=== PATIENT | male | born 1945 | race Caucasian/White ===

== ENCOUNTER 2017-08-24 14:42 | Emergency (ER) | payer MEDICARE, BC ==
[~2017-08-24] VITALS: Ht 182.9 cm; Wt 90.7 kg
--- NOTE | 2017-08-24 14:44 | NUR ---
BBRA 86 FROM HOME FOR NEAR SYNCOPAL EPISODE WITNESSED BY HOME HEALTH RN. RT KNEE DWIGHT 2 DAYS AGO. PALCED ON MONITOR. AWAITING MD ORDER. 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
[2017-08-24] MEDS ORDERED: IV NS 0.9% 1,000 ML BAG IV ONE (15:00)
[2017-08-24 15:16] LABS: BASOPHILS # (AUTO) 0.1 /CMM (0.0-0.2); EOSINOPHILS # (AUTO) 0.2 /CMM (0.0-0.7); EOSINOPHILS % (AUTO) 2.5 % (0.0-6.0); HEMATOCRIT 39 % (39-51); HEMOGLOBIN 12.6 g/dL (13.5-17.5); LYMPHOCYTES # (AUTO) 0.8 /CMM (0.8-4.8); LYMPHOCYTES % (AUTO) 9.7 % (20.0-44.0); MEAN CORPUSCULAR HEMOGLOBIN 29 PG (26.0-33.0); MEAN CORPUSCULAR HGB CONC 32 g/dl (31.0-36.0); MEAN CORPUSCULAR VOLUME 89 fL (80-96); MONOCYTES # (AUTO) 0.6 /CMM (0.1-1.30); MONOCYTES % (AUTO) 6.7 % (2.0-12.0); NEUTROPHILS # (AUTO) 6.8 /CMM (1.8-8.9); NEUTROPHILS % (AUTO) 80.1 % (43.0-81.0); PLATELET COUNT (AUTO) 219 /CMM (150-450); RDW COEFFICIENT OF VARIATION 12.4 (11.5-15.0); RED BLOOD CELL COUNT(AUTO) 4.39 MIL/uL (4.5-6.0); WHITE BLOOD COUNT (AUTO) 8.5 K/uL (4.3-11.0)
--- NOTE | 2017-08-24 15:16 | NUR ---
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
[2017-08-24 15:25] LABS: CALCIUM, SERUM 8.6 mg/dL (8.5-10.1); CARBON DIOXIDE 26 mmol/L (21-32); CHLORIDE 102 mmol/L (98-107); CREATININE 1.3 mg/dL (0.6-1.3); GLUCOSE 146 mg/dL (74-106); POTASSIUM 4.3 mmol/L (3.5-5.1); SODIUM SERUM 134 mmol/L (136-145); UREA NITROGEN, BLOOD 23 mg/dL (7-18)
[2017-08-24 15:30] LABS: INR 0.99 (0.87-1.13); PROTHROMBIN TIME 10.3 SECS (9.5-12.7)
[2017-08-24 15:36] LABS: TROPONIN I < 0.017 ng/mL (0.00-0.056)
--- NOTE | 2017-08-24 16:15 | NUR ---
GAVE REPORT TO TO [facility] TELEMETRY ROOM [address] SOTO TRANSFER VIA [facility]
[2017-08-24 16:35] LABS: APPEARANCE,URINE Clear (CLEAR); BILIRUBIN,URINE SMALL (NEGATIVE); BLOOD, URINE Negative Ery/uL (NEGATIVE); COLOR,URINE Yellow (YELLOW); KETONES,URINE Trace (NEGATIVE); LEUKOCYTE ESTERASE ,URINE Negative (NEGATIVE); NITRITE, URINE Negative (NEGATIVE); PROTEIN,URINE Trace mg/dl (NEGATIVE); UGLUCOSE Negative (NEGATIVE); UROBILINOGEN,URINE >=8.0 EU/dL (0.2)
[2017-08-24 16:46] LABS: BACTERIA,URINE Rare /HPF (None Seen); RBC,URINE 0-2 /HPF (0-2); SQUAMOUS EPITHELIAL CELL,UR Few /HPF (None Seen); WBC,URINE 0-2 /HPF (0-3)
[2017-08-24] MEDS ORDERED: VANCOMYCIN 1 GM in IV D5W 250 ML IV ONE (17:30)
[2017-08-24] MEDS ORDERED: CEFEPIME 1 GM in IV D5W 50 ML IV ONE (17:30)
[2017-08-24 17:49] LABS: BILIRUBIN,DIRECT 0.4 mg/dL (0.0-0.2)
--- NOTE | 2017-08-24 19:00 | NUR ---
REPORT RECEIVED FROM BERTRAND LIN. PT BEING TRANS TO [facility], AWAITING BED.
--- NOTE | 2017-08-24 19:05 | NUR ---
PT RESTING QUIETLY, FAMILY AT BEDSIDE. VSS/RESP EVEN AND UNLABORED/NAD NOTED. CONTINUING TO PROVIDE COMFORT MEASURES.
--- NOTE | 2017-08-24 19:21 | NUR ---
Pt accepted to [facility] Room number 7912 Number for report is [phone]
--- NOTE | 2017-08-24 19:26 | NUR ---
called for amb pickup. eta given: [id number]
--- NOTE | 2017-08-24 19:32 | NUR ---
GAVE REPORT TO SHARLENE THURSTON FOR ELISA
--- NOTE | 2017-08-24 19:46 | NUR ---
GAVE REPORT TO SHAAN THURSTON AT [facility] ACCEPTING MD DR MORTON NEAR SYNCOPE
[2017-08-24 21:08] VITALS: BP 140/74
--- NOTE | 2017-08-24 22:08 | NUR ---
REPORT GIVVEN TO [facility] FOR PT TRANSFER TO [facility].
== END 2017-08-24 22:11 | disposition short-term general hospital (02) ==
LOC: ER 14:45
DX: R55 Syncope and collapse (principal); M00.9 Pyogenic arthritis, unspecified; I10 Essential (primary) hypertension; I25.2 Old myocardial infarction; Z96.651 Presence of right artificial knee joint; Z95.818 Presence of other cardiac implants and grafts
CPT/HCPCS: 36415; 71010; 80048; 81001; 82247; 82248; 83605 ×2; 84484; 85025; 85730; 87040 ×2; 93005; 96361; 96365; 96367; 99291; A4606; J0692; J3370; J7030; J7060 ×2; 81000-TC; Z7610